=== PATIENT | male | born 1995 | race Caucasian/White ===

== ENCOUNTER 2018-02-14 07:45 | Emergency (ER) | payer SELFPAY ==
[~2018-02-14] VITALS: Ht 185.4 cm; Wt 81.2 kg
[2018-02-14 07:50] VITALS: BP 111/75
--- NOTE | 2018-02-14 07:55 | NUR ---
PATIENT AMBULATED TO BED 2 AT THIS TIME.
--- NOTE | 2018-02-14 07:56 | NUR ---
22 YO M BIB SELF W/ C/O RIGHT EYE DRAINAGE, SWELLING, ITCHING AND REDNESS X 7 DAYS. NO ONE AT HOME DISPLAYS THE SAME S/S AT THIS TIME. DENIES N/V/D. AAOX4 WITH EVEN AND STEADY GAIT; LUNGS CLEAR BL. PT DENIES ANY FEVER, CP, SOB, OR COUGH AT THIS TIME; PATIENT STATES PAIN OF 0/10 AT THIS TIME. PATIENT POSITIONED FOR COMFORT; HOB ELEVATED; BEDRAILS UP X2; BED DOWN. ER MADE AWARE OF PT STATUS. Addendum: 02/14/18 at 0821 by [email or web address] PT DENIES TRAUMA.
[2018-02-14] MEDS ORDERED: cefTRIAXone 1,000 MG in LIDOCAINE 1% ***ER ONLY *** 2.1 ML IM ONE (08:50)
[2018-02-14 09:53] VITALS: BP 109/67
--- NOTE | 2018-02-14 09:53 | NUR ---
Patient discharged with v/s stable. Written and verbal after care instructions given and explained. Patient alert, oriented and verbalized understanding of instructions. Ambulatory with steady gait. All questions addressed prior to discharge. ID band removed. Patient advised to follow up with PMD. Rx of DOXYCYCLINE&ERYTHROMYCIN OINTMENT given. Patient educated on indication of medication including possible reaction and side effects. Opportunity to ask questions provided and answered.
== END 2018-02-14 09:53 | disposition home or self-care (01) ==
LOC: MED 07:45
DX: H10.89 Other conjunctivitis (principal)
CPT/HCPCS: 96372; 99283; J0696; J2001

== ENCOUNTER 2020-11-11 10:30 | Emergency (ER) | payer SELFPAY ==
[~2020-11-11] VITALS: Ht 188 cm; Wt 94.3 kg
[2020-11-11 10:38] VITALS: BP 157/80
[2020-11-11] MEDS ORDERED: MORPHINE SULFATE 4 MG/ML SYR IVP ONE (10:55)
[2020-11-11] MEDS ORDERED: NACL 0.9% 1,000 ML IV ONE (10:55)
[2020-11-11] MEDS ORDERED: KETOROLAC 15 MG/ML VIAL IVP ONE (10:55)
[2020-11-11] MEDS ORDERED: ONDANSETRON 4 MG/2 ML VIAL IVP ONE (10:55)
[2020-11-11 11:09] LABS: BASOPHILS % (AUTO) 0.4 % (0.0-2.0); EOSINOPHILS # (AUTO) 0.1 K/uL (0-0.4); EOSINOPHILS % (AUTO) 0.6 % (0.0-4.0); HEMATOCRIT 46.7 % (36-52); HEMOGLOBIN 16.3 g/dL (12.0-18.0); LYMPHOCYTES # (AUTO) 1.2 K/uL (2.0-11.5); LYMPHOCYTES % (AUTO) 11.9 % (20.5-51.1); MEAN CORPUSCULAR HEMOGLOBIN 30 pg (27-31); MEAN CORPUSCULAR HGB CONC 35 g/dL (33-37); MEAN CORPUSCULAR VOLUME 86.3 fL (80-94); MONOCYTES # (AUTO) 0.4 K/uL (0.8-1.0); MONOCYTES % (AUTO) 4.2 % (1.7-9.3); NEUTROPHILS # (AUTO) 8.7 K/uL (1.8-7.7); NEUTROPHILS % (AUTO) 82.9 % (42.2-75.2); PLATELET COUNT (AUTO) 238 K/uL (140-450); RED BLOOD CELL COUNT(AUTO) 5.41 MIL/uL (4.20-6.10); RED CELL DISTRIBUTION WIDTH 13.3 % (11.6-13.7); WHITE BLOOD COUNT (AUTO) 10.5 K/uL (4.8-10.8)
[2020-11-11 11:21] LABS: ALBUMIN 4.3 g/dL (3.4-5.0); ANION GAP 10.8 (8-16); CARBON DIOXIDE 28.2 mmol/L (21-32); TOTAL BILIRUBIN 0.8 mg/dL (0.0-1.0)
[2020-11-11] MEDS ORDERED: FAMO-92 PO (12:56)
[2020-11-11] MEDS ORDERED: ONDA-24 PO (12:56)
[2020-11-11] MEDS ORDERED: ACET-2619 PO (12:56)
== END 2020-11-11 13:11 | disposition home or self-care (01) ==
LOC: MED 10:30
DX: R10.12 Left upper quadrant pain (principal); R11.2 Nausea with vomiting, unspecified; R74.01 Elevation of levels of liver transaminase levels
CPT/HCPCS: 36415; 80053; 83690; 85025; 96361; 96374; 96375; 99284; J1885; J2270; J2405; J7030